=== PATIENT | female | born 1970 | race Caucasian/White ===

== ENCOUNTER 2017-02-19 11:47 | Emergency (ER) | payer OTHER ==
--- NOTE | ~2017-02-19 | ER ---
PATIENT'S NAME: YAMEL YORK [facility] AGE: 47 Y [address] ROOM: [place] [address] LOCATION: [facility] ADMIT DATE: 02/19/2017 ER/Outpatient Report DISCHARGE DATE: 02/19/2017 FAMILY PHYSICIAN: Lula Chavez MD ATTENDING PHYSICIAN: Fran Hobbs Time of Patient arrival: 1147 hours. Time of Patient Evaluation: 1210 hours. CHIEF COMPLAINT: Left leg injury from fall. HISTORY OF PRESENT ILLNESS: This is a 47-year-old female who presents to the ER and states she had a recent foot surgery done. She states that she is supposed to be nonweightbearing on her left foot and she does use a strap on leg scooter to help her get around. She states she was at work. She was getting up from her desk to put on her scooter onto her knee when she got her boot caught on the desk and she ended up falling forward landing directly onto her left knee cap. She states that she is having significant amount of pain in her left knee. She states that she does not believe she hurt her foot at all. She denies any other problem at this time. ALLERGIES: NO KNOWN ALLERGIES. MEDICATIONS: Please see medication list in nurse's notes. PAST MEDICAL HISTORY: Kidney stones, hypertension, bipolar, hypothyroidism, and acid reflux. PAST SURGICAL HISTORY: She has had a hysterectomy, a left foot surgery, and tonsillectomy. SOCIAL HISTORY: Smokes 3-4 cigarettes a day. Denies drug use. Drinks alcohol rarely. REVIEW OF SYSTEMS: A 10-point review of systems was completed and was negative with the exception of those discussed in the HPI. PHYSICAL EXAMINATION: VITAL SIGNS: Blood pressure is 124/87, pulse 98, respirations 20, temperature 97.7 degrees tympanically, and saturations 97% on room air. Maki Coma PATIENT'S NAME: YAMEL YORK [facility] AGE: 47 Y [address] ROOM: [place] [address] LOCATION: [facility] ADMIT DATE: 02/19/2017 ER/Outpatient Report DISCHARGE DATE: 02/19/2017 FAMILY PHYSICIAN: Lula Chavez MD ATTENDING PHYSICIAN: Fran Hobbs Score is 15. GENERAL: Alert, calm, well-developed female, in no obvious distress. HEENT: Head: Normocephalic. She does display moist mucous membranes. EXTREMITIES: No clubbing. She does have some swelling noted to her left knee. She does have tenderness over all aspects of her knee, particularly over the patella. She had decreased range of motion of her left knee secondary to pain. She does have her left foot in a CAM walking boot. NEURO: Cranial nerves 2-12 grossly intact. Gait was not observed. She has full range of motion of all of her other limbs. LABORATORY DATA: None were done. X-RAYS: X-rays of the left knee showed no obvious deformity or abnormality. IMPRESSION: Left knee injury from a ground-level fall. ASSESSMENT AND PLAN: I did give the patient reassurance. We will have her ice and elevate the foot. We will place Chris wrap to the leg. I did give her Roe here in the emergency room for pain. We will dismiss the patient to home with a prescription for Roe along with a work note, and she should follow up with her primary care physician for followup care. The patient understands and agrees with care. MARY JO ARRIETA PA-C FOR DO NIELS THOMPSON/radha /[id number] d: t: 02/22/17 1312, OUTPATIENT REPORT
[2017-04-29] MEDS ORDERED: DESYREL50 MG PO (09:14)
[2017-04-29] MEDS ORDERED: ELAVIL **IA 9100 MG PO (09:14)
[2017-04-29] MEDS ORDERED: NEURONTIN100 MG PO (09:14)
[2017-04-29] MEDS ORDERED: LIPITOR20 M1 PO (09:14)
[2017-04-29] MEDS ORDERED: GLUCOPHAGE XR500 MG PO (09:15)
[2017-04-29] MEDS ORDERED: PRINIVIL (ZESTRI5 MG PO (09:15)
[2017-04-29] MEDS ORDERED: OMEPRAZOLE40 MG PO (09:15)
[2017-04-29] MEDS ORDERED: LEVOTHROID (S100 MCG PO (09:16)
[2017-04-29] MEDS ORDERED: HYDROCODON-ACE1 EAC4 PO (09:16)
[2017-04-29] MEDS ORDERED: ZOFRAN ODT4 MG PO (09:17)
[2017-05-15] MEDS ORDERED: LEVOTHROID (S100 MCG PO (16:47)
[2017-05-15] MEDS ORDERED: ROXICODONE 5MG (5 MG PO (16:48)
[2017-05-15] MEDS ORDERED: MS CONTIN15 MG PO (16:49)
[2017-05-15] MEDS ORDERED: ATIVAN 0.5MG0.5 MG PO (16:49)
[2017-05-15] MEDS ORDERED: PHENERGAN25 M1 PO (16:50)
== END 2017-02-19 12:55 | disposition disaster alternative care site (69) ==
LOC: GACC 11:47
DX: S89.92XA Unspecified injury of left lower leg, initial encounter (principal); I10 Essential (primary) hypertension; F31.9 Bipolar disorder, unspecified; E03.9 Hypothyroidism, unspecified; K21.9 Gastro-esophageal reflux disease without esophagitis; F17.210 Nicotine dependence, cigarettes, uncomplicated; Z90.710 Acquired absence of both cervix and uterus; Z90.89 Acquired absence of other organs; W18.30XA Fall on same level, unspecified, initial encounter

== ENCOUNTER → 2017-02-25 | Outpatient (CLI) | payer OTHER ==
[~2017-02-25] MED LIST: ATIVAN 0.5MG0.5 MG PO; DESYREL50 MG PO; ELAVIL **IA 9100 MG PO; GLUCOPHAGE XR500 MG PO; HYDROCODON-ACE1 EAC4 PO; LEVOTHROID (S100 MCG PO; LIPITOR20 M1 PO; MS CONTIN15 MG PO; NEURONTIN100 MG PO; OMEPRAZOLE40 MG PO; PHENERGAN25 M1 PO; PRINIVIL (ZESTRI5 MG PO; ROXICODONE 5MG (5 MG PO; ZOFRAN ODT4 MG PO
== END | disposition disaster alternative care site (69) ==
LOC: GRAD 13:54
PROC: 3E0U33Z Introduction of Anti-inflammatory into Joints, Percutaneous Approach (ICD-10-PCS; principal; 2017-02-25)
PROC: 3E0U3BZ Introduction of Anesthetic Agent into Joints, Percutaneous Approach (ICD-10-PCS; 2017-02-25)
DX: M25.562 Pain in left knee (principal)

== ENCOUNTER → 2017-04-24 | Outpatient (CLI) | payer OTHER ==
--- NOTE | ~2017-04-24 | CON ---
PATIENT'S NAME: YAMEL KEE [facility] AGE: 47 Y [address] ROOM: [place] [address] LOCATION: [facility] ADMIT DATE: 04/24/2017 Consultation DISCHARGE DATE: FAMILY PHYSICIAN: Lula Chavez MD ATTENDING PHYSICIAN: Lula Chavez DATE OF CONSULTATION: 04/24/2017 Yamel is a 47-year-old white female referred to me by Dr. Lula Chavez for diabetic self-management education. Her current height is 5 feet 3.5 inches, weight 204.8 pounds, and BMI is 36.12, waist circumference is 46 inches, and blood pressure is 136/76. She was diagnosed with type 2 diabetes about a week or two ago. Her current problems are chronic constipation, chronic gastritis, depression, GERD, microscopic hematuria, hyperlipidemia, hypercalciuria, hyperparathyroidism, hypokalemia, hypothyroidism, history of kidney stones, insomnia, migraines, multiplarthralgias, RA, vitamin D deficiency, and elevated liver enzymes. Her current medications are amitriptyline 100 mg daily, lisinopril 5 mg daily, metformin 500 mg twice a day, omeprazole 40 mg daily, atorvastatin 20 mg daily, Synthroid 100 mcg daily, sumatriptan succinate 6 mg per 0.5 mL subcu solution to injection p.r.n. migraine headache, and gabapentin 100 mg two capsules at bedtime. She has never had any previous diabetic self-management education. Her most recent lab data on April 16, showed an A1c of 6.2% at that time, fasting sugar of 92, total cholesterol 205, HDL 50, LDL 135, triglycerides 101, potassium 3.9, BUN 24, creatinine 1.05, PTH is 87.8, and her EGFR is 60. She does have OneTouch glucometer that is brand new. She is checking her blood sugars 1 to 2 times daily usually in the fasting state and intermittently at various times during the day. She has never experienced any hypoglycemia. We did discuss the pathophysiology of type 2 diabetes, the signs and symptoms of hyper- and hypo- glycemia and the treatment of hypoglycemia using the rule of 15. She was also given a handout. As far as clearance for exercise or any exercise limitations, she had her Achilles tendon lengthened on her left foot in January of 2017. She has now just been released by her two needle machine operator, Dr. Valle, to be able to begin the exercise again. Her favorite thing to do is walking which she does for 20 minutes 5 days a week over her lunch hour. She sees the dentist twice a year. Her last eye exam was done by the [facility] in [place] and she sees them one time per year. She sees Dr. Valle every 2 months for her foot problems as well as getting her nails trimmed. 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 She works 40+ hours per week and usually works closer to 60. She lives at home with her mother who is undergoing treatment for breast cancer and they both prepare their own meals. She does not drink any alcohol, but she does smoke 2 to 3 cigarettes per day, 5 at the very most. She has smoked since age 13 and has quit many times. It is just a matter of habit. She likes to smoke on the way to and from work, and PATIENT'S NAME: YAMEL KEE [facility] AGE: 47 Y [address] ROOM: [place], [place] [address] LOCATION: [facility] ADMIT DATE: 04/24/2017 Consultation DISCHARGE DATE: FAMILY PHYSICIAN: Lula Chavez MD ATTENDING PHYSICIAN: Lula Chavez during the lunch break. She does not eat out. She has been very meticulous about her eating habits especially since Dr. Chavez told her that she had diabetes. Her weekend and weekday schedule is about the same. She goes to work from 7:30 in the morning to 4:30 in the afternoon, and the only day she does not work is Friday. She denies any food-related allergies or intolerances. She does have a history of constipation as well as heartburn. Her mineral and vitamin supplements consist of vitamin D 5000 units 5 days a week. She has not been really concerned about anything as far as her diabetes is concerned as far as having issues with her insurance, paying for anything, things have gone well, and she simply accepted this. She kind of figured this was coming. She sees Dr. Corin Brody for her hypothyroidism and hyperparathyroidism, who is an morning news anchor in [place], [place]. Anna starts her normal day at 4 o'clock in the morning. She gets up and takes her Synthroid as this seems to have been the best for her to keep her TSH in the therapeutic range. She then goes back to sleep and wakes up between 5:30 and 6:00 and has a protein shake called IdealShape. She puts that with 1% milk, 8 ounces, which is 12 g carbohydrate, and the shake itself has 11 g, so she is consuming about 23 g of carbohydrate for breakfast. She eats lunch at 11. She has one cup of tuna, a hard boiled egg with some dill relish and one tablespoon of garcias, and a diet snapple. If she eats an evening meal it is between 5 or 6 or sometimes she does not eat at all. Her bedtime snack is at 8:30 to 9 o'clock at night, and she will have a Little Emilia or a banana. Her beverages consist of water, 8 ounces of coke, milk, and ice tea. She does not really mention much about fruits, but the only thing that she really likes are strawberries and bananas. She also did not mention much about vegetables which I discussed with her that it was important to have as part of her diet. I would like her to try to eliminate her regular coke because of the high carbohydrate content in that. We did discuss the plate method and that she should be consuming between 90 and 135 g of carbohydrate a day to lose about 1 pound per week. We discussed portion sizes. We discussed how to estimate those portion sizes using her hands. I asked her to write down the 20 most common things that she eats and the portion size and then we could calculate out the grams of carbohydrate. We did discuss using the [employer] kei and she also has another kei that she uses to track things and that she will continue to do so. She seemed to be very interested in [employer] kei. I did discuss with her that our first goal is to fix fasting blood sugars first as long as she is not having any hypoglycemic episodes. I advised her that the target blood sugars for fasting is 90-120 and 2 hours post prandial is less than 150. We also discussed label reading and looking at the portion sizes as well as the number of grams carbohydrate. I also told her to try to achieve at least 3 g of fiber per serving as this will slow down the spike on her blood sugars from what she eats. I did review her glucometer. She had 20 readings to review. Her highest one was 178 and the lowest was 100 with an average of 132. She knows that she has been doing much better since she has been watching things and is quite concerned because she continues to have abdominal pain, and she is having a CT scan done. She follows up with Dr. Chavez on May 26. I gave her my e-mail PATIENT'S NAME: YAMEL KEE [facility] AGE: 47 Y [address] ROOM: [place] [address] LOCATION: [facility] ADMIT DATE: 04/24/2017 Consultation DISCHARGE DATE: FAMILY PHYSICIAN: Lula Chavez MD ATTENDING PHYSICIAN: Lula Chavez address as well as my phone number for her to call with any questions or concerns. I will follow up with her on 26 of May, when she sees Dr. Chavez at that time. Thank you for this interesting consultation. Dr. Chavez and I will look forward to following up with her. LON REA/radha /[id number] d: 04/30/17 1410 t: 05/01/17 1407, CONSULTATION REPORT
== END | disposition disaster alternative care site (69) ==
LOC: GDIC 13:38
DX: E11.65 Type 2 diabetes mellitus with hyperglycemia (principal); E78.5 Hyperlipidemia, unspecified; E83.52 Hypercalcemia; E21.3 Hyperparathyroidism, unspecified; E03.9 Hypothyroidism, unspecified; E87.6 Hypokalemia
CPT/HCPCS: G0108

== ENCOUNTER 2017-04-25 06:47 | Emergency (ER) | payer OTHER ==
--- NOTE | ~2017-04-25 | ER ---
[facility] AGE: 47 Y [address] ROOM: [place] [address] LOCATION: [facility] ADMIT DATE: 04/25/2017 ER/Outpatient Report DISCHARGE DATE: 04/25/2017 FAMILY PHYSICIAN: Lula Chavez MD ATTENDING PHYSICIAN: Alex Manning CHIEF COMPLAINT: Abdominal pain. HISTORY OF PRESENT ILLNESS: The patient states that about an hour prior to arrival, around 6 o'clock this morning, she had significant right-sided abdominal pain. The pain has been present for a week, but has been fluctuating. It has never been as intense as it was this morning. It is unrelenting, and described this as a significant pressure. She does have a history of some nausea with this, but has not vomited. She denies any significant changes with meals, and has not eaten this morning. It does not really radiate anywhere. She has never had anything like this before. PAST MEDICAL HISTORY: Notable for 1. Hypothyroidism. 2. Hypertension. 3. GERD. 4. Elevated cholesterol. PAST SURGICAL HISTORY: 1. Hysterectomy. 2. Tonsillectomy. SOCIAL HISTORY: The patient does occasionally use marijuana, rarely uses alcohol, and smokes a few cigarettes a day. 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 ALLERGIES: NO KNOWN DRUG ALLERGIES. MEDICATIONS: See attached list. REVIEW OF SYSTEMS: All systems were reviewed and are negative except as noted in HPI. PHYSICAL EXAMINATION: PAT[facility]: [facility] AGE: 47 Y [address] ROOM: [place] [address] LOCATION: [facility] ADMIT DATE: 04/25/2017 ER/Outpatient Report DISCHARGE DATE: 04/25/2017 FAMILY PHYSICIAN: Lula Chavez MD ATTENDING PHYSICIAN: Alex Manning VITAL SIGNS: Blood pressure was 118/81, pulse was 104, respiratory rate was 18, temperature was 98.5, and SpO2 was 98% on room air. Pain is 10/10. GENERAL: Age-appropriate female, in [id number] pain. Recumbent on the exam table in no respiratory distress. NEUROLOGIC: Awake and alert. GCS is 15. No focal deficits. No asymmetry. HEENT: Normocephalic and atraumatic. Eyes are PERRL. Oropharynx is clear. NECK: Supple. Trachea is midline. CHEST: Heart is regular rate and rhythm with no murmurs. LUNGS: Grossly clear to auscultation bilateral with no rhonchi, wheezes, or rales. ABDOMEN: Soft, but exquisitely tender in the right upper quadrant. The lateral aspects of the ribs are also very tender to palpation. Tse sign is negative. No rebound, guarding, or masses otherwise. BACK: Normal to inspection and palpation. No CVA tenderness. EXTREMITIES: Warm and well perfused. No edema or deformities. SKIN: Clean, dry, and intact. No obvious rashes. LABORATORY DATA AND X-RAYS: CT of chest, abdomen, and pelvis with no acute findings other than a large liver mass. Right upper quadrant ultrasound with liver mass and gallstones, but non-dilated duct. No cholecystitis. Labs with lactate of 0.8. Troponin was below threshold. Urinalysis: No evidence of infection. CBC: White count of 13.9, hemoglobin of 11.8, and platelets of 282. INR is less than 1. CMS without any electrolyte abnormalities. Alkaline phosphatase is 147. LFTs are within normal range. Bilirubin is 0.4. GFR was greater than 60. Amylase and lipase were within range. CRP is 4.83. GGT is 142. IMPRESSION: 1. Right upper quadrant abdominal pain. 2. New diagnosis of liver mass. EMERGENCY DEPARTMENT COURSE: The patient was seen and evaluated as above. Her pain was controlled with fentanyl. She was given some Zofran. She remained otherwise hemodynamically stable. Her pain was adequately controlled. Her evaluation is not consistent with cholecystitis or choledocholithiasis. However, there is a new liver mass. This explains her elevated GGT. Imaging characteristics are concerning for possible cancer. The patient is otherwise stable. We will set her off with an outpatient CT-guided liver biopsy on April [address] Ramirez to arrive at 14:30 in the afternoon. Results to Dr. Chavez. I did discuss the case with Dr. Chavez, who is aware. Discharged with Percocet. No evidence of hepatic synthetic function detriment. Zofran 4 for nausea. The patient is to return if uncontrolled pain, or other new signs or symptoms. No evidence of PATIENT'S NAME: YAMEL KEE [facility] AGE: 47 Y [address] ROOM: [place], [place] [address] LOCATION: [facility] ADMIT DATE: 04/25/2017 ER/Outpatient Report DISCHARGE DATE: 04/25/2017 FAMILY PHYSICIAN: Lula Chavez MD ATTENDING PHYSICIAN: Alex Manning PE on study. Not consistent with ACS. MD DI MIR/modl /[id number] d: 04/25/172106 t: 05/06/171932, OUTPATIENT REPORT
[2017-04-25 08:13] LABS: INR - (THERAPEUTIC) 0.95 (0.92-1.07)
[2017-04-25 08:24] LABS: BASOPHIL # 0.1 K/uL (0.0-0.2); BASOPHIL % 0.5 %; EOSINOPHIL # 0.3 K/uL (0.0-0.5); EOSINOPHIL % 1.9 %; HEMATOCRIT 36.4 % (33.0-46.0); HEMOGLOBIN 11.8 g/dL (10.0-15.0); IMMATURE GRANULOCYTE # 0.1 K/uL (0.0-0.3); IMMATURE GRANULOCYTE % 0.4 %; LYMPHOCYTE # 1.8 K/uL (0.8-4.0); LYMPHOCYTE % 12.9 %; MCH 28.4 pg (27.0-34.0); MCHC 32.4 gm/dL (32.0-36.5); MCV 87.7 fl (83.0-98.0); MONOCYTE # 0.7 K/uL (0.0-1.0); MONOCYTE % 4.7 %; MPV 10.2 fl (9.4-12.4); NEUTROPHIL # (ANC) 11.1 K/uL (1.8-7.8); NEUTROPHIL % 79.6 %; NRBC % 0 /100WBC (0-0.00); PLATELET COUNT 282 K/uL (150-450); RBC 4.15 M/uL (3.50-5.50); WBC 13.9 K/uL (4.0-11.0)
[2017-04-25 08:25] LABS: ALBUMIN 3.2 gm/dL (3.5-5.0); ALK PHOS 147 IU/L (33-138); ALT 47 IU/L (12-78); ANION GAP 15.8 (10.0-19.0); AST 20 IU/L (10-40); BLOOD UREA NITROGEN 12 mg/dL (6-24); CALCIUM 9.1 mg/dL (8.5-10.5); CHLORIDE 107 mMol/L (96-110); CO2 24 mMol/L (22-32); CREATININE 0.7 mg/dL (0.5-1.1); ESTIMATED GFR (MDRD EQUATION) > 60; POTASSIUM 3.8 mMol/L (3.7-5.1); SODIUM 143 mMol/L (135-145); TOTAL BILIRUBIN 0.4 mg/dL (0.0-1.5); TOTAL PROTEIN 7.2 g/dL (6.0-8.4)
[2017-04-25 09:43] LABS: BILIRUBIN URINE NEGATIVE (NEGATIVE); BLOOD URINE NEGATIVE /UL (NEGATIVE); GLUCOSE URINE NEGATIVE (NEGATIVE); KETONE URINE NEGATIVE (NEGATIVE); LEUKOCYTES URINE NEGATIVE /UL (NEGATIVE); NITRITE URINE NEGATIVE (NEGATIVE); PROTEIN URINE NEGATIVE (NEGATIVE); SPEC GRAVITY URINE 1.015 (1.003-1.035); UROBILINOGEN URINE NORMAL (NORMAL)
[2017-04-25 09:45] LABS: COLOR URINE YELLOW (YELLOW); TURBIDITY URINE CLEAR (CLEAR)
[2017-04-29] MEDS ORDERED: ELAVIL **IA 9100 MG PO (09:14)
[2017-04-29] MEDS ORDERED: DESYREL50 MG PO (09:14)
[2017-04-29] MEDS ORDERED: LIPITOR20 M1 PO (09:14)
[2017-04-29] MEDS ORDERED: NEURONTIN100 MG PO (09:14)
[2017-04-29] MEDS ORDERED: OMEPRAZOLE40 MG PO (09:15)
[2017-04-29] MEDS ORDERED: GLUCOPHAGE XR500 MG PO (09:15)
[2017-04-29] MEDS ORDERED: PRINIVIL (ZESTRI5 MG PO (09:15)
[2017-04-29] MEDS ORDERED: LEVOTHROID (S100 MCG PO (09:16)
[2017-04-29] MEDS ORDERED: HYDROCODON-ACE1 EAC4 PO (09:16)
[2017-04-29] MEDS ORDERED: ZOFRAN ODT4 MG PO (09:17)
[2017-05-15] MEDS ORDERED: LEVOTHROID (S100 MCG PO (16:47)
[2017-05-15] MEDS ORDERED: ROXICODONE 5MG (5 MG PO (16:48)
[2017-05-15] MEDS ORDERED: MS CONTIN15 MG PO (16:49)
[2017-05-15] MEDS ORDERED: ATIVAN 0.5MG0.5 MG PO (16:49)
[2017-05-15] MEDS ORDERED: PHENERGAN25 M1 PO (16:50)
== END 2017-04-25 10:45 | disposition disaster alternative care site (69) ==
LOC: GMED 06:47
PROVIDERS: Emergency Medicine
DX: R16.0 Hepatomegaly, not elsewhere classified (principal); E03.9 Hypothyroidism, unspecified; I10 Essential (primary) hypertension; F17.210 Nicotine dependence, cigarettes, uncomplicated; E78.00 Pure hypercholesterolemia, unspecified; K21.9 Gastro-esophageal reflux disease without esophagitis; K80.80 Other cholelithiasis without obstruction; E11.9 Type 2 diabetes mellitus without complications; Z90.710 Acquired absence of both cervix and uterus; Z90.89 Acquired absence of other organs; Z79.899 Other long term (current) drug therapy; Z79.84 Long term (current) use of oral hypoglycemic drugs; Z98.890 Other specified postprocedural states
CPT/HCPCS: J2001; J2405; J3010; Q9967

== ENCOUNTER 2017-04-27 13:06 | Emergency (ER) | payer OTHER ==
--- NOTE | ~2017-04-27 | ER ---
PATIENT'S NAME: YAMEL KEE [facility] AGE: 47 Y [address] ROOM: [place] [address] LOCATION: [facility] ADMIT DATE: 04/27/2017 ER/Outpatient Report DISCHARGE DATE: 04/27/2017 FAMILY PHYSICIAN: Lula Chavez MD ATTENDING PHYSICIAN: Alex Manning Time of Arrival: 1347 hours. Time of Exam: 1350 hours. CHIEF COMPLAINT: Headache. HISTORY OF PRESENT ILLNESS: The patient was seen here Friday and was found to have a mass in the liver. States that this morning early she woke with a migraine headache. The headache is primarily in the posterior head area. She states it is similar to headaches that she has had in the past. Took her pain medications this morning, but puked them back out. She was given Zofran, but she states it has not helped. She has had photophobia. She states that she continues to have some discomfort in the belly, but that has improved. ALLERGIES: NO KNOWN ALLERGIES. CURRENT MEDICATIONS: On the chart and reviewed by me. PAST MEDICAL HISTORY: New diagnosis of a liver mass, noninsulin-dependent diabetes, migraine headaches, hypertension, and bipolar. PAST SURGERIES: Tonsillectomy, Achilles tendon repair, and hysterectomy. SOCIAL HISTORY: She smokes 3-4 cigarettes per day and has for the past 34 years. Denies use of drugs or alcohol. REVIEW OF SYSTEMS: All negative other than those mentioned in the HPI. PHYSICAL EXAMINATION: VITAL SIGNS: She weighed 90.6 kg. Blood pressure is 128/82, pulse of 104, respirations 18, temperature of 100.2 tympanic, and O2 saturation initially was 88% on room air. She was started on 2 L of O2 per nasal cannula, it did PATIENT'S NAME: YAMEL KEE [facility] AGE: 47 Y [address] ROOM: [place] [address] LOCATION: ED ADMIT DATE: 04/27/2017 ER/Outpatient Report DISCHARGE DATE: 04/27/2017 FAMILY PHYSICIAN: Lula Chavez MD ATTENDING PHYSICIAN: Alex Manning bring her saturations up to 94%-96%. LUNGS: Clear to auscultate throughout HEART: Regular rate and rhythm. ABDOMEN: Round. Bowel sounds present. EMERGENCY DEPARTMENT COURSE: IV saline lock was initiated. She was given Zofran 4 mg IV and Toradol 30 mg IV. Lab work was drawn. Dr. Manning did briefly examine the patient. Her lab work is improved from what it had been on Friday. With the medicines, she felt that her headache was improving. She was doing better. Oxygen was discontinued. She is able to maintain her saturations in the 92%-94%. She states she would like to go home. IMPRESSION: Headache. PLAN: Home. Rest. Continue her current medications and plan. A prescription for Phenergan was written by Dr. Manning. The patient is here with her mother who will drive her home. The patient verbalizes understanding. She is to follow up as previously discussed on Friday. BRAYDEN BARBOUR APRN FOR MD WILLIAN MIR/radha /[id number] d: 04/27/172024 t: 05/06/171932, OUTPATIENT REPORT
[2017-04-27 14:19] LABS: BASOPHIL # 0.1 K/uL (0.0-0.2); BASOPHIL % 0.4 %; EOSINOPHIL # 0.1 K/uL (0.0-0.5); HEMATOCRIT 36.8 % (33.0-46.0); HEMOGLOBIN 11.6 g/dL (10.0-15.0); IMMATURE GRANULOCYTE % 0.2 %; LYMPHOCYTE # 1.3 K/uL (0.8-4.0); LYMPHOCYTE % 10.4 %; MCH 28.3 pg (27.0-34.0); MCHC 31.5 gm/dL (32.0-36.5); MCV 89.8 fl (83.0-98.0); MONOCYTE # 0.5 K/uL (0.0-1.0); MONOCYTE % 4.1 %; MPV 9.7 fl (9.4-12.4); NEUTROPHIL # (ANC) 10.8 K/uL (1.8-7.8); NEUTROPHIL % 83.9 %; NRBC % 0 /100WBC (0-0.00); PLATELET COUNT 297 K/uL (150-450); RDW-CV 13.1 % (11.9-14.6); WBC 12.9 K/uL (4.0-11.0)
[2017-04-27 14:39] LABS: ALK PHOS 140 IU/L (33-138); ALT 33 IU/L (12-78); AST 18 IU/L (10-40); BLOOD UREA NITROGEN 12 mg/dL (6-24); CHLORIDE 104 mMol/L (96-110); CO2 27 mMol/L (22-32); CREATININE 0.7 mg/dL (0.5-1.1); ESTIMATED GFR (MDRD EQUATION) > 60; SODIUM 139 mMol/L (135-145); TOTAL BILIRUBIN 0.4 mg/dL (0.0-1.5); TOTAL PROTEIN 7.4 g/dL (6.0-8.4)
[2017-04-29] MEDS ORDERED: NEURONTIN100 MG PO (09:14)
[2017-04-29] MEDS ORDERED: LIPITOR20 M1 PO (09:14)
[2017-04-29] MEDS ORDERED: ELAVIL **IA 9100 MG PO (09:14)
[2017-04-29] MEDS ORDERED: DESYREL50 MG PO (09:14)
[2017-04-29] MEDS ORDERED: GLUCOPHAGE XR500 MG PO (09:15)
[2017-04-29] MEDS ORDERED: PRINIVIL (ZESTRI5 MG PO (09:15)
[2017-04-29] MEDS ORDERED: OMEPRAZOLE40 MG PO (09:15)
[2017-04-29] MEDS ORDERED: LEVOTHROID (S100 MCG PO (09:16)
[2017-04-29] MEDS ORDERED: HYDROCODON-ACE1 EAC4 PO (09:16)
[2017-04-29] MEDS ORDERED: ZOFRAN ODT4 MG PO (09:17)
[2017-05-15] MEDS ORDERED: LEVOTHROID (S100 MCG PO (16:47)
[2017-05-15] MEDS ORDERED: ROXICODONE 5MG (5 MG PO (16:48)
[2017-05-15] MEDS ORDERED: ATIVAN 0.5MG0.5 MG PO (16:49)
[2017-05-15] MEDS ORDERED: MS CONTIN15 MG PO (16:49)
[2017-05-15] MEDS ORDERED: PHENERGAN25 M1 PO (16:50)
== END 2017-04-27 15:02 | disposition disaster alternative care site (69) ==
LOC: GMED 13:06
PROVIDERS: Emergency Medicine
DX: R51 Headache (principal); F17.210 Nicotine dependence, cigarettes, uncomplicated; E11.9 Type 2 diabetes mellitus without complications; I10 Essential (primary) hypertension; F31.9 Bipolar disorder, unspecified; R16.0 Hepatomegaly, not elsewhere classified; Z98.890 Other specified postprocedural states; Z90.710 Acquired absence of both cervix and uterus; Z79.899 Other long term (current) drug therapy
CPT/HCPCS: J1885; J2405

== ENCOUNTER → 2017-04-30 | Outpatient (CLI) | payer OTHER | END | disposition disaster alternative care site (69) | LOC: GOPD 04-29 | PROC: 0FB03ZX Excision of Liver, Percutaneous Approach, Diagnostic (ICD-10-PCS; principal; 2017-04-30) | DX: C22.7 Other specified carcinomas of liver (principal); R10.11 Right upper quadrant pain | CPT/HCPCS: J2001; J2250; J3010; Q9967 ==

== ENCOUNTER → 2017-05-19 | Day surgery (SDC) | payer OTHER ==
[~2017-05-19] VITALS: Ht 157.5 cm; Wt 88.1 kg
== END | disposition disaster alternative care site (69) ==
LOC: GPOC 05-15 15:00 → GEND 07:41 → GPOC 15:00
PROC: 0DJ08ZZ Inspection of Upper Intestinal Tract, Via Natural or Artificial Opening Endoscopic (ICD-10-PCS; principal; 2017-05-19)
PROC: 0DBP8ZX Excision of Rectum, Via Natural or Artificial Opening Endoscopic, Diagnostic (ICD-10-PCS; 2017-05-19)
DX: K62.1 Rectal polyp (principal); K44.9 Diaphragmatic hernia without obstruction or gangrene; K21.0 Gastro-esophageal reflux disease with esophagitis; C22.8 Malignant neoplasm of liver, primary, unspecified as to type; G43.909 Migraine, unspecified, not intractable, without status migrainosus; M06.9 Rheumatoid arthritis, unspecified; E05.00 Thyrotoxicosis with diffuse goiter without thyrotoxic crisis or storm; E11.9 Type 2 diabetes mellitus without complications; F41.8 Other specified anxiety disorders; F41.0 Panic disorder [episodic paroxysmal anxiety]; I10 Essential (primary) hypertension; E78.00 Pure hypercholesterolemia, unspecified; E03.9 Hypothyroidism, unspecified; E78.5 Hyperlipidemia, unspecified; F17.210 Nicotine dependence, cigarettes, uncomplicated; Z90.710 Acquired absence of both cervix and uterus; Z98.890 Other specified postprocedural states; Z79.899 Other long term (current) drug therapy
CPT/HCPCS: J1100; J2001; J2405; J7030

== ENCOUNTER → 2017-05-22 | Outpatient (CLI) | payer OTHER | END | disposition disaster alternative care site (69) | LOC: GKIC 11:03 | DX: C22.8 Malignant neoplasm of liver, primary, unspecified as to type (principal); R16.0 Hepatomegaly, not elsewhere classified | CPT/HCPCS: A9552 ==

== ENCOUNTER 2017-06-29 12:31 | Emergency (ER) | payer OTHER ==
--- NOTE | ~2017-06-29 | ER ---
PATIENT'S NAME: YAMEL GRIGSBY [facility] AGE: 47 Y [address] ROOM: [place] [address] LOCATION: ED ADMIT DATE: 06/29/2017 ER/Outpatient Report DISCHARGE DATE: 06/29/2017 FAMILY PHYSICIAN: Lula Chavez MD ATTENDING PHYSICIAN: Alex Manning CHIEF COMPLAINT: Right-sided abdominal pain. HISTORY OF PRESENT ILLNESS: Ms. Grigsby presents for evaluation of right-sided abdominal pain by ambulance. She received fentanyl and Zofran with improvement in her nausea and pain. She ran out of her Phenergan and morphine yesterday. The pain has been present since last night and is worse today. She has scheduled refills tomorrow. She is approximately 3 weeks status post a liver mass resection in [place]. Reports initially are that it is adenocarcinoma. She has no low blood counts after that surgery. She denies any fevers or chills. She has no dysuria. She is otherwise feeling well under the circumstances. She notes her surgical site drain is without significant changes. No blood, and no purulence. PAST MEDICAL HISTORY: Documented on the record and reviewed by me. SOCIAL HISTORY: Documented on the record and reviewed by me. MEDICATIONS: Documented on the record and reviewed by me. ALLERGIES: DOCUMENTED ON THE RECORD AND REVIEWED BY ME. REVIEW OF SYSTEMS: All systems reviewed and negative except as noted in the HPI. PHYSICAL EXAMINATION: VITAL SIGNS: Blood pressure 125/79, pulse 103, respiratory rate is 18, temperature 98.1, and SpO2 is 94% on room air. Pain is rated 5/10. GENERAL: An age-appropriate female, in no obvious distress, in mild discomfort. Semi-recumbent on the exam table. NEUROLOGIC: Awake and alert. GCS 15. No focal deficits. No asymmetry. HEENT: Normocephalic, atraumatic. Eyes are PERRL. Oropharynx is clear. NECK: Supple. Trachea is midline. PATIENT'S NAME: YAMEL GRIGSBY [facility] AGE: 47 Y [address] ROOM: [place] [address] LOCATION: ED ADMIT DATE: 06/29/2017 ER/Outpatient Report DISCHARGE DATE: 06/29/2017 FAMILY PHYSICIAN: Lula Chavez MD ATTENDING PHYSICIAN: Alex Manning CHEST: Heart is regular. Borderline tachycardia. No murmurs. LUNGS: Clear to auscultation bilaterally with diminished lung sounds in the right base. ABDOMEN: Soft. Slightly tender at the surgical site. No masses, erythema, rebound, or guarding noted. Right flank biliary drain is in place with normal drainage. No purulence or blood. Bowel sounds present. BACK: Normal to inspection and palpation. No CVA tenderness. No spinal tenderness. EXTREMITIES: Warm and well perfused. Trace edema at the ankles. SKIN: Appears to be intact otherwise. Surgical incision is healing well. LABORATORY AND X-RAY DATA: Chest x-ray with right-sided pleural effusion that is new. Drain appears to be in good position. Labs: White count is 8.0; hemoglobin 8.6, up from 7.5 on the ; and platelets are 272. INR is 1. CMS with no appreciable electrolyte abnormalities. Renal function is appropriate. Slight elevation of the transaminases. Amylase and lipase are within normal limits. IMPRESSION: 1. Right-sided abdominal pain, postsurgical. 2. New right-sided pleural effusion. 3. Mild elevation of transaminases. EMERGENCY DEPARTMENT COURSE: The patient was seen and evaluated. She was given morphine IV with near complete resolution of her discomfort. Labs are reassuring and improved from most recent labs from [facility]. The patient was stabilized. She was determined to be stable for discharge home. I did discuss the new pleural effusion with Dr. Quevedo, oncology territory service representative for the patient's primary oncologist, Dr. Swenson, and she is in agreement that close followup will be appropriate. The patient was updated on plan. Follow up as needed, return if worse. MD DI MIR/radha /[id number] d: 06/29/17 1716 t: 07/15/17 0909, OUTPATIENT REPORT
[2017-06-29 13:04] LABS: BASOPHIL # 0.1 K/uL (0.0-0.2); BASOPHIL % 0.8 %; EOSINOPHIL # 0.4 K/uL (0.0-0.5); EOSINOPHIL % 5.3 %; HEMOGLOBIN 8.6 g/dL (10.0-15.0); IMMATURE GRANULOCYTE % 0.4 %; LYMPHOCYTE # 1.4 K/uL (0.8-4.0); LYMPHOCYTE % 17.2 %; MCH 26.4 pg (27.0-34.0); MCV 87.1 fl (83.0-98.0); MONOCYTE # 0.5 K/uL (0.0-1.0); MONOCYTE % 6.4 %; MPV 9.6 fl (9.4-12.4); NEUTROPHIL # (ANC) 5.6 K/uL (1.8-7.8); NEUTROPHIL % 69.9 %; NRBC % 0 /100WBC (0-0.00); PLATELET COUNT 272 K/uL (150-450); RBC 3.26 M/uL (3.50-5.50)
[2017-06-29 13:05] LABS: HEMATOCRIT 28.4 % (33.0-46.0); MCHC 30.3 gm/dL (32.0-36.5); RDW-CV 15.2 % (11.9-14.6)
[2017-06-29 13:12] LABS: INR - (THERAPEUTIC) 1.07 (0.92-1.07); PROTIME 11.2 SECONDS (9.8-11.4); PTT 26 SECONDS (25-32)
[2017-06-29 13:21] LABS: ALBUMIN 2.3 gm/dL (3.5-5.0); ALK PHOS 317 IU/L (33-138); ALT 32 IU/L (12-78); ANION GAP 11.4 (10.0-19.0); AST 60 IU/L (10-40); BLOOD UREA NITROGEN 9 mg/dL (6-24); CALCIUM 8.5 mg/dL (8.5-10.5); CHLORIDE 105 mMol/L (96-110); CO2 27 mMol/L (22-32); CREATININE 0.7 mg/dL (0.5-1.1); POTASSIUM 3.4 mMol/L (3.7-5.1); SODIUM 140 mMol/L (135-145); TOTAL BILIRUBIN 0.4 mg/dL (0.0-1.5); TOTAL PROTEIN 6.6 g/dL (6.0-8.4)
== END 2017-06-29 14:14 | disposition disaster alternative care site (69) ==
LOC: GMED 12:31
PROVIDERS: Emergency Medicine
DX: G89.18 Other acute postprocedural pain (principal); R10.9 Unspecified abdominal pain; J90 Pleural effusion, not elsewhere classified; R74.0 Nonspecific elevation of levels of transaminase and lactic acid dehydrogenase [LDH]; I10 Essential (primary) hypertension; F17.210 Nicotine dependence, cigarettes, uncomplicated; Z90.710 Acquired absence of both cervix and uterus; Z90.49 Acquired absence of other specified parts of digestive tract; Z90.89 Acquired absence of other organs; Z85.05 Personal history of malignant neoplasm of liver; Z79.2 Long term (current) use of antibiotics; Z79.84 Long term (current) use of oral hypoglycemic drugs; Z79.891 Long term (current) use of opiate analgesic; Z79.899 Other long term (current) drug therapy
CPT/HCPCS: J2270

== ENCOUNTER 2017-07-26 08:08 | Emergency (ER) | payer OTHER ==
--- NOTE | ~2017-07-26 | ER ---
PATIENT'S NAME: YAMEL KEE [facility] AGE: 47 Y [address] ROOM: [place] [address] LOCATION: ED ADMIT DATE: 07/26/2017 ER/Outpatient Report DISCHARGE DATE: 07/26/2017 FAMILY PHYSICIAN: Lula Chavez MD ATTENDING PHYSICIAN: Fran Hobbs TIME OF ARRIVAL: 0820 hours. TIME OF EVALUATION: 0821 hours. CHIEF COMPLAINT: Migraine. HISTORY OF PRESENT ILLNESS: The patient is a 47-year-old female who presents to the emergency department today with a chief complaint of migraine. The patient reports she does have a history of migraines. This does feels like her similar migraines. Last similar headache was 3 weeks prior. Denies any thunderclap headache. It is not the worst headache of her life. Pain is currently 8/10 in severity. It is on both sides of her head in the front. It is a throbbing-type pain. She does report vomiting 15 times as well as chronic diarrhea. She has had 6 episodes in the past 24 hours. She denies any weakness. No fevers or chills. No troubles urinating. PAST MEDICAL HISTORY: Liver mass with recent biliary drain, migraines, zau-jhulllb-[id number] diabetes, hypertension, and bipolar. PAST SURGICAL HISTORY: Tonsillectomy, Achilles tendon, hysterectomy, liver resection 06/02/2017, and biliary drain. SOCIAL HISTORY: The patient smokes 3 to 4 cigarettes a day for 34 years. Denies any alcohol or illicit drug use. ALLERGIES: NO KNOWN DRUG ALLERGIES. MEDICATIONS: Please see list. REVIEW OF SYSTEMS: PATIENT'S NAME: YAMEL KEE [facility] AGE: 47 Y [address] ROOM: [place] [address] LOCATION: ED ADMIT DATE: 07/26/2017 ER/Outpatient Report DISCHARGE DATE: 07/26/2017 FAMILY PHYSICIAN: Lula Chavez MD ATTENDING PHYSICIAN: Fran Hobbs All systems are reviewed by myself and are negative with the exception of those discussed in the HPI and Past Medical History. PHYSICAL EXAMINATION: VITAL SIGNS: Weight 76.6 kg, blood pressure 141/92, pulse 67, respiratory rate 16, temperature 97.3, and oxygen saturation 97% on room air. GENERAL: The patient is a 47-year-old female who appears stated age, in mild acute distress secondary to pain in her head. HEENT: Normocephalic and atraumatic. Pupils are equal, round, and reactive to light. Extraocular motions are intact. Nares are patent bilaterally. TMs are clear. Oropharynx is clear. Mucous membranes are moist. NECK: Supple. No nuchal rigidity. CARDIOVASCULAR: Regular rate and rhythm. No murmurs, rubs, or gallops. LUNGS: Clear to auscultation bilaterally. No wheezes, rales, or rhonchi. ABDOMEN: Soft. Mild diffuse tenderness to palpation. There is no rebound, rigidity, or guarding. Positive bowel sounds. Surgical incision sites are clean, dry, and intact. The site of the biliary drain is leaking a small amount of serous fluid. MUSCULOSKELETAL: The patient moves all 4 extremities. 5/5 muscle strength. SKIN: Warm and dry. LABORATORY AND X-RAY DATA: Labs and x-rays are obtained. CBC is unremarkable except for platelets 510. CMP is unremarkable except for an alkaline phosphatase 635, AST of 101, ALT is normal. Total bilirubin is normal. IMPRESSION: 1. Acute cephalgia, suspect migraine type. 2. Elevated liver enzymes with history of liver cancer. 3. Initial visit. EMERGENCY DEPARTMENT COURSE: The patient was brought back to the examination room. Seen and evaluated by myself. IV is established. Laboratory analysis and imaging are obtained as described above. The patient is given 10 mg of Compazine IV, 50 mg of Benadryl IV, as well as 30 mg of Toradol IV. She is also given a GI cocktail. The patient's migraine is significantly improved. She does report she still has some acid reflux-type pain in the mid epigastric region. Her abdominal exam is repeated. She continues to have a nonsurgical abdominal exam at this time. I have discussed results with the patient. I have recommended close followup with her oncologist. She does report she has an appointment to see Dr. Swenson on Friday. I have discussed return to care instructions including worsening symptoms, worsening abdominal pain, fevers, chills, or any other concerns, to return to the emergency department as soon as possible. The patient is agreeable without further questions at this time. PATIENT'S NAME: YAMEL KEE [facility] AGE: 47 Y [address] ROOM: [place], [place] [address] LOCATION: [facility] ADMIT DATE: 07/26/2017 ER/Outpatient Report DISCHARGE DATE: 07/26/2017 FAMILY PHYSICIAN: Lula Chavez MD ATTENDING PHYSICIAN: Fran Hobbs DISPOSITION: The patient is discharged to home in good condition with a prescription for Compazine. DO LORA THOMPSON/radha /[id number] d: 07/26/17 1209 t: 07/27/17 0840, OUTPATIENT REPORT
[2017-07-26 08:54] LABS: BASOPHIL % 0.4 %; EOSINOPHIL # 0.1 K/uL (0.0-0.5); EOSINOPHIL % 1.7 %; HEMOGLOBIN 12.3 g/dL (10.0-15.0); IMMATURE GRANULOCYTE % 0.3 %; LYMPHOCYTE # 1.2 K/uL (0.8-4.0); LYMPHOCYTE % 17.4 %; MONOCYTE # 0.4 K/uL (0.0-1.0); MONOCYTE % 5.1 %; MPV 10.1 fl (9.4-12.4); NEUTROPHIL # (ANC) 5.2 K/uL (1.8-7.8); NEUTROPHIL % 75.1 %; NRBC % 0 /100WBC (0-0.00); WBC 6.9 K/uL (4.0-11.0)
[2017-07-26 08:55] LABS: HEMATOCRIT 39.7 % (33.0-46.0); MCH 25.1 pg (27.0-34.0); PLATELET COUNT 510 K/uL (150-450); RDW-CV 18.8 % (11.9-14.6)
[2017-07-26 09:12] LABS: ALBUMIN 2.8 gm/dL (3.5-5.0); ALT 40 IU/L (12-78); ANION GAP 10.9 (10.0-19.0); AST 101 IU/L (10-40); BLOOD UREA NITROGEN 7 mg/dL (6-24); CHLORIDE 106 mMol/L (96-110); CO2 29 mMol/L (22-32); CREATININE 0.7 mg/dL (0.5-1.1); POTASSIUM 3.9 mMol/L (3.7-5.1); SODIUM 142 mMol/L (135-145); TOTAL PROTEIN 7.8 g/dL (6.0-8.4)
[2017-07-26 09:20] LABS: ALK PHOS 635 IU/L (33-138); TOTAL BILIRUBIN 0.7 mg/dL (0.0-1.5)
== END 2017-07-26 10:05 | disposition disaster alternative care site (69) ==
LOC: GMED 08:08
PROVIDERS: Emergency Medicine
DX: R51 Headache (principal); R74.8 Abnormal levels of other serum enzymes; I10 Essential (primary) hypertension; E11.9 Type 2 diabetes mellitus without complications; F31.9 Bipolar disorder, unspecified; F17.210 Nicotine dependence, cigarettes, uncomplicated; Z79.84 Long term (current) use of oral hypoglycemic drugs; Z79.891 Long term (current) use of opiate analgesic; Z79.899 Other long term (current) drug therapy; Z85.05 Personal history of malignant neoplasm of liver; Z98.890 Other specified postprocedural states; Z90.89 Acquired absence of other organs
CPT/HCPCS: J0780; J1200; J1885; J7030